=== PATIENT | female | born 1965 | race African-American/Black ===

== ENCOUNTER 2021-08-12 19:10 | Inpatient (IN) ==
[2021-08-12 19:33] LABS: Basophils # 0.1 10*3/uL (0.0-0.2); Basophils % 0.5 % (0.0-0.8); Eosinophils # 0.1 10*3/uL (0.0-0.87); Eosinophils % 1.5 % (0.00-10.9); Hematocrit 43.2 VOL% (35.7-47.0); Hemoglobin 14.8 GM/DL (12.0-16.0); Immature Granulocytes % 0.3 %; Immature Granulocytes Absolute 0.03 #; Lymphocytes # 2.1 10*3/uL (1.4-4.0); Lymphocytes % 22.7 % (21.3-54.2); Mean Corpuscular HGB Conc 34.3 GM/DL (32-36); Mean Corpuscular Volume 95.4 FL (87-102); Mean Platelet Volume 9.9 FL (9.6-12.0); Monocytes % 8.4 % (1.7-12.7); Neutrophils % 66.6 % (38.7-73.9); Platelet Count 317 T/CUMM (130-400); Red Blood Count 4.53 MC/CUMM (3.8-5.5); Red Cell Distribution Width 13.6 % (9.3-17.3); White Blood Count 9.3 T/CUMM (4-12)
[2021-08-12 19:54] LABS: Alanine Aminotransferase 60 U/L (13-56); Albumin 4.1 G/DL (3.4-5.0); Alkaline Phosphatase 71 U/L (45-117); Aspartate Amino Transferase 45 U/L (0-37); Bilirubin,Total < 0.39 MG/DL (0.20-1.00); Blood Urea Nitrogen 8 MG/DL (7-18); Carbon Dioxide 27 MMOL/L (21-32); Estimated Glom Filtration Rate 114 ML/MIN; Glucose 101 MG/DL (74-106); Osmolality,Calculated 276.4 MOS/KG (273-304); Potassium 4.9 MMOL/L (3.5-5.1); Sodium 140 MMOL/L (136-145); Total Protein 8.7 G/DL (6.4-8.2)
[2021-08-12] MEDS ORDERED: ALUM/MAG/SIMETH/LIDO VISC 1:1 30 ML BOTTLE PO STA (20:24)
[2021-08-12] MEDS ORDERED: LABETALOL 20 MG/4 ML SYRINGE IV STA (20:25)
[2021-08-12] MEDS ORDERED: NITROGLYCERIN SL 0.4 MG TABLET SL STA (21:03)
[2021-08-12] MEDS ORDERED: ASPIRIN 325 MG TABLET PO STA (21:03)
[2021-08-12] MEDS ORDERED: methylPREDNISolone SOD SUC 125 MG/2 ML VIAL IV STA (21:03)
[2021-08-12] MEDS ORDERED: ALBUTEROL/IPRATROPIUM 3 ML NEB RESP TX STA (21:03)
[2021-08-12] MEDS ORDERED: ONDANSETRON 4 MG/2 ML VIAL IV ONE ×2 (21:04→21:51)
[2021-08-12] MEDS ORDERED: MORPHINE 2 MG/1 ML SYRINGE IV STA (21:04)
[2021-08-12] MEDS ORDERED: hydrALAZINE 20 MG/1 ML VIAL IV PRN (23:11)
[2021-08-12] MEDS ORDERED: NICOTINE 21 MG/24 HR PATCH TRANSDERM PRN (23:11)
[2021-08-12] MEDS ORDERED: KETOROLAC 30 MG/1 ML VIAL IV STA (23:11)
[2021-08-12] MEDS ORDERED: ONDANSETRON 4 MG/2 ML VIAL IV PRN (23:11)
[2021-08-13 00:20] LABS: INR 0.9; PT Patient Result 9.8 SECS (10.5-12.0); Partial Thromboplastin Time 24.2 SECS (23.9-33.8)
[2021-08-13] MEDS: ENOXAPARIN 40 MG/0.4 ML SYRINGE SUBCUT SCH ×2 (01:30→20:25)
[2021-08-13] MEDS: ACETAMINOPHEN 325 MG TABLET PO PRN ×3 (01:30→17:10)
[2021-08-13 02:11] LABS: Basophils % 0.2 % (0.0-0.8); Hematocrit 39.8 VOL% (35.7-47.0); Hemoglobin 13.5 GM/DL (12.0-16.0); Immature Granulocytes % 0.4 %; Immature Granulocytes Absolute 0.04 #; Lymphocytes # 0.8 10*3/uL (1.4-4.0); Lymphocytes % 6.7 % (21.3-54.2); Mean Corpuscular HGB Conc 33.9 GM/DL (32-36); Mean Corpuscular Volume 96.8 FL (87-102); Mean Platelet Volume 10.4 FL (9.6-12.0); Neutrophils % 91.7 % (38.7-73.9); Platelet Count 289 T/CUMM (130-400); Red Blood Count 4.11 MC/CUMM (3.8-5.5); Red Cell Distribution Width 13.7 % (9.3-17.3); White Blood Count 11.3 T/CUMM (4-12)
[2021-08-13 02:36] LABS: Alanine Aminotransferase 49 U/L (13-56); Albumin 3.9 G/DL (3.4-5.0); Alkaline Phosphatase 70 U/L (45-117); Aspartate Amino Transferase 34 U/L (0-37); Bilirubin,Total < 0.39 MG/DL (0.20-1.00); Blood Urea Nitrogen 11 MG/DL (7-18); Carbon Dioxide 24 MMOL/L (21-32); Estimated Glom Filtration Rate 92 ML/MIN; Glucose 194 MG/DL (74-106); Osmolality,Calculated 273.1 MOS/KG (273-304); Potassium 3.7 MMOL/L (3.5-5.1); Sodium 135 MMOL/L (136-145)
[2021-08-13 02:38] LABS: Lymphocytes 4 % (20-55); Segmented Neutrophils 95 % (50-85); Total Cells Counted 100
[2021-08-13 02:39] LABS: Platelet Estimate Normal
[2021-08-13 02:41] LABS: Polychromasia Slight
[2021-08-13] MEDS ORDERED: MORPHINE 2 MG/1 ML SYRINGE IV ONE (05:51)
[2021-08-13] MEDS: ALBUTEROL/IPRATROPIUM 3 ML NEB RESP TX SCH ×4 (07:26→19:55)
[2021-08-13] MEDS: PANTOPRAZOLE 40 MG TABLET PO SCH (08:50)
[2021-08-13] MEDS: hydroCHLOROthiazide 25 MG TABLET PO SCH (10:47)
[2021-08-13] MEDS ORDERED: LORazepam 2 MG/1 ML VIAL IV PRN (13:33)
[2021-08-13] MEDS: THIAMINE 200 MG/2 ML VIAL IV SCH (17:02)
[2021-08-13] MEDS: FOLIC ACID INJ 1 MG in SYRINGE 1 EACH IV SCH (17:03)
[2021-08-13] MEDS: MULTIVITAMIN INJ 10 ML in SODIUM CHLORIDE 0.9% 1,000 ML IV SCH (17:06)
[2021-08-13] MEDS: SIMVASTATIN 20 MG TABLET PO SCH (18:26)
[2021-08-13] MEDS ORDERED: ASPIRIN CHEW 81 MG TABLET PO ONE (21:13)
[2021-08-14] MEDS: ALBUTEROL/IPRATROPIUM 3 ML NEB RESP TX SCH ×4 (01:01→19:28)
[2021-08-14] MEDS: ACETAMINOPHEN 325 MG TABLET PO PRN ×3 (02:00→22:36)
[2021-08-14] MEDS: SODIUM CHLORIDE 0.9% 1,000 ML IV SCH ×2 (03:10→04:33)
[2021-08-14 05:21] LABS: Basophils % 0.2 % (0.0-0.8); Eosinophils % 0.1 % (0.00-10.9); Hematocrit 37.3 VOL% (35.7-47.0); Hemoglobin 12.6 GM/DL (12.0-16.0); Immature Granulocytes % 0.4 %; Immature Granulocytes Absolute 0.05 #; Lymphocytes # 2.7 10*3/uL (1.4-4.0); Lymphocytes % 22.2 % (21.3-54.2); Mean Corpuscular HGB Conc 33.8 GM/DL (32-36); Mean Corpuscular Volume 97.6 FL (87-102); Mean Platelet Volume 10.7 FL (9.6-12.0); Monocytes % 8.2 % (1.7-12.7); Neutrophils % 68.9 % (38.7-73.9); Platelet Count 250 T/CUMM (130-400); Red Blood Count 3.82 MC/CUMM (3.8-5.5); Red Cell Distribution Width 13.7 % (9.3-17.3); White Blood Count 12.1 T/CUMM (4-12)
[2021-08-14 05:39] LABS: Alanine Aminotransferase 36 U/L (13-56); Albumin 3.3 G/DL (3.4-5.0); Alkaline Phosphatase 56 U/L (45-117); Aspartate Amino Transferase 19 U/L (0-37); Bilirubin,Total < 0.39 MG/DL (0.20-1.00); Blood Urea Nitrogen 12 MG/DL (7-18); Calcium 8.4 MG/DL (8.5-10.1); Carbon Dioxide 27 MMOL/L (21-32); Estimated Glom Filtration Rate 113 ML/MIN; Glucose 108 MG/DL (74-106); Osmolality,Calculated 281.3 MOS/KG (273-304); Potassium 3.6 MMOL/L (3.5-5.1); Sodium 141 MMOL/L (136-145)
[2021-08-14 05:41] LABS: Risk Ratio 1.96; VLDL Cholesterol 13.6 MG/DL
[2021-08-14] MEDS ORDERED: MAGNESIUM SULF RIDER 4 GM/100 ML PREMIX IV PRN (07:29)
[2021-08-14] MEDS ORDERED: MAGNESIUM SULF RIDER 2 GM/50 ML PREMIX IV PRN (07:29)
[2021-08-14] MEDS: hydroCHLOROthiazide 25 MG TABLET PO SCH (09:39)
[2021-08-14] MEDS: ASPIRIN CHEW 81 MG TABLET PO SCH (09:39)
[2021-08-14] MEDS: PANTOPRAZOLE 40 MG TABLET PO SCH (09:39)
[2021-08-14] MEDS: FOLIC ACID INJ 1 MG in SYRINGE 1 EACH IV SCH (11:35)
[2021-08-14] MEDS: THIAMINE 200 MG/2 ML VIAL IV SCH (11:36)
[2021-08-14] MEDS: GABAPENTIN 100 MG CAPSULE PO SCH ×2 (15:03→20:19)
[2021-08-14] MEDS: MULTIVITAMIN INJ 10 ML in SODIUM CHLORIDE 0.9% 1,000 ML IV SCH (15:03)
[2021-08-14] MEDS: SIMVASTATIN 20 MG TABLET PO SCH (20:19)
[2021-08-14] MEDS: ENOXAPARIN 40 MG/0.4 ML SYRINGE SUBCUT SCH (20:19)
[2021-08-15] MEDS: ALBUTEROL/IPRATROPIUM 3 ML NEB RESP TX SCH ×4 (01:27→18:57)
[2021-08-15] MEDS: ACETAMINOPHEN 325 MG TABLET PO PRN ×2 (02:05→18:17)
[2021-08-15] MEDS: SODIUM CHLORIDE 0.9% 1,000 ML IV SCH ×3 (02:06→21:55)
[2021-08-15 05:17] LABS: Basophils % 0.5 % (0.0-0.8); Eosinophils # 0.1 10*3/uL (0.0-0.87); Eosinophils % 1.6 % (0.00-10.9); Hematocrit 37.2 VOL% (35.7-47.0); Hemoglobin 12.5 GM/DL (12.0-16.0); Immature Granulocytes % 0.5 %; Immature Granulocytes Absolute 0.04 #; Lymphocytes # 2.9 10*3/uL (1.4-4.0); Lymphocytes % 33.1 % (21.3-54.2); Mean Corpuscular HGB Conc 33.6 GM/DL (32-36); Mean Corpuscular Volume 98.4 FL (87-102); Mean Platelet Volume 10.7 FL (9.6-12.0); Monocytes % 10.5 % (1.7-12.7); Neutrophils % 53.8 % (38.7-73.9); Platelet Count 229 T/CUMM (130-400); Red Blood Count 3.78 MC/CUMM (3.8-5.5); Red Cell Distribution Width 13.5 % (9.3-17.3); White Blood Count 8.6 T/CUMM (4-12)
[2021-08-15 05:45] LABS: Bilirubin,Total 0.6 MG/DL (0.20-1.00); Calcium 8.3 MG/DL (8.5-10.1); Osmolality,Calculated 278.3 MOS/KG (273-304); Potassium 3.4 MMOL/L (3.5-5.1); Total Protein 6.9 G/DL (6.4-8.2)
[2021-08-15] MEDS: FOLIC ACID INJ 1 MG in SYRINGE 1 EACH IV SCH (09:09)
[2021-08-15] MEDS: ASPIRIN CHEW 81 MG TABLET PO SCH (09:09)
[2021-08-15] MEDS: hydroCHLOROthiazide 25 MG TABLET PO SCH (09:09)
[2021-08-15] MEDS: PANTOPRAZOLE 40 MG TABLET PO SCH (09:09)
[2021-08-15] MEDS: GABAPENTIN 100 MG CAPSULE PO SCH ×3 (09:09→21:54)
[2021-08-15] MEDS: THIAMINE 200 MG/2 ML VIAL IV SCH (09:10)
[2021-08-15] MEDS ORDERED: POTASSIUM CHLORIDE 20 MEQ TABLET PO ONE (14:44)
[2021-08-15] MEDS: MULTIVITAMIN INJ 10 ML in SODIUM CHLORIDE 0.9% 1,000 ML IV SCH (15:31)
[2021-08-15] MEDS: SIMVASTATIN 20 MG TABLET PO SCH (21:54)
[2021-08-15] MEDS: ENOXAPARIN 40 MG/0.4 ML SYRINGE SUBCUT SCH (21:54)
[2021-08-16] MEDS: ALBUTEROL/IPRATROPIUM 3 ML NEB RESP TX SCH ×4 (00:45→19:09)
[2021-08-16] MEDS: ACETAMINOPHEN 325 MG TABLET PO PRN ×2 (01:09→23:06)
[2021-08-16 05:00] LABS: Basophils % 0.4 % (0.0-0.8); Eosinophils # 0.3 10*3/uL (0.0-0.87); Hematocrit 32.6 VOL% (35.7-47.0); Hemoglobin 10.9 GM/DL (12.0-16.0); Immature Granulocytes % 0.2 %; Immature Granulocytes Absolute 0.02 #; Lymphocytes # 2.9 10*3/uL (1.4-4.0); Lymphocytes % 35.4 % (21.3-54.2); Mean Corpuscular HGB Conc 33.4 GM/DL (32-36); Mean Corpuscular Volume 98.5 FL (87-102); Mean Platelet Volume 10.9 FL (9.6-12.0); Monocytes % 8.9 % (1.7-12.7); Neutrophils % 51.1 % (38.7-73.9); Platelet Count 201 T/CUMM (130-400); Red Blood Count 3.31 MC/CUMM (3.8-5.5); Red Cell Distribution Width 13.2 % (9.3-17.3); White Blood Count 8.1 T/CUMM (4-12)
[2021-08-16 05:20] LABS: Calcium 7.9 MG/DL (8.5-10.1); Osmolality,Calculated 280.1 MOS/KG (273-304); Potassium 3.2 MMOL/L (3.5-5.1)
[2021-08-16 05:24] LABS: Platelet Estimate Adequate
[2021-08-16] MEDS: SODIUM CHLORIDE 0.9% 1,000 ML IV SCH (10:03)
[2021-08-16] MEDS: hydroCHLOROthiazide 25 MG TABLET PO SCH (13:15)
[2021-08-16] MEDS: ASPIRIN CHEW 81 MG TABLET PO SCH (13:15)
[2021-08-16] MEDS: PANTOPRAZOLE 40 MG TABLET PO SCH (13:16)
[2021-08-16] MEDS: THIAMINE 200 MG/2 ML VIAL IV SCH (13:16)
[2021-08-16] MEDS: GABAPENTIN 100 MG CAPSULE PO SCH ×3 (13:16→20:14)
[2021-08-16] MEDS: FOLIC ACID INJ 1 MG in SYRINGE 1 EACH IV SCH (13:22)
[2021-08-16] MEDS ORDERED: POTASSIUM CHLORIDE 20 MEQ TABLET PO ONE (13:36)
[2021-08-16] MEDS: MULTIVITAMIN INJ 10 ML in SODIUM CHLORIDE 0.9% 1,000 ML IV SCH (15:22)
[2021-08-16 16:20] LABS: Folate 18.03 NG/ML (5.38-24.0)
[2021-08-16] MEDS: ENOXAPARIN 40 MG/0.4 ML SYRINGE SUBCUT SCH (20:14)
[2021-08-16] MEDS: SIMVASTATIN 20 MG TABLET PO SCH (20:14)
[2021-08-17] MEDS: ALBUTEROL/IPRATROPIUM 3 ML NEB RESP TX SCH ×3 (00:21→13:39)
[2021-08-17 05:16] LABS: Basophils % 0.4 % (0.0-0.8); Eosinophils # 0.4 10*3/uL (0.0-0.87); Eosinophils % 5.3 % (0.00-10.9); Hematocrit 32.2 VOL% (35.7-47.0); Hemoglobin 10.8 GM/DL (12.0-16.0); Immature Granulocytes % 0.3 %; Immature Granulocytes Absolute 0.02 #; Lymphocytes # 2.5 10*3/uL (1.4-4.0); Lymphocytes % 33.2 % (21.3-54.2); Mean Corpuscular HGB Conc 33.5 GM/DL (32-36); Mean Corpuscular Volume 97.9 FL (87-102); Mean Platelet Volume 10.9 FL (9.6-12.0); Monocytes % 8.1 % (1.7-12.7); Neutrophils % 52.7 % (38.7-73.9); Platelet Count 211 T/CUMM (130-400); Red Blood Count 3.29 MC/CUMM (3.8-5.5); Red Cell Distribution Width 13.2 % (9.3-17.3); White Blood Count 7.4 T/CUMM (4-12)
[2021-08-17 05:37] LABS: Hypochromasia Slight; Microcytosis Slight; Platelet Estimate Adequate
[2021-08-17 05:41] LABS: Calcium 8.7 MG/DL (8.5-10.1); Osmolality,Calculated 277.3 MOS/KG (273-304); Potassium 3.1 MMOL/L (3.5-5.1)
[2021-08-17] MEDS: THIAMINE 200 MG/2 ML VIAL IV SCH (08:47)
[2021-08-17] MEDS: ASPIRIN CHEW 81 MG TABLET PO SCH (08:49)
[2021-08-17] MEDS: GABAPENTIN 100 MG CAPSULE PO SCH (08:49)
[2021-08-17] MEDS: hydroCHLOROthiazide 25 MG TABLET PO SCH (08:49)
[2021-08-17] MEDS: PANTOPRAZOLE 40 MG TABLET PO SCH (08:49)
[2021-08-17] MEDS: ACETAMINOPHEN 325 MG TABLET PO PRN (08:52)
[2021-08-17] MEDS: FOLIC ACID INJ 1 MG in SYRINGE 1 EACH IV SCH (08:53)
[2021-08-17 12:51] VITALS: BP 134/77
[2021-08-17] MEDS ORDERED: POTASSIUM CHLORIDE 20 MEQ TABLET PO ONE (13:22)
== END 2021-08-17 16:25 | disposition home or self-care (01) | DRG 440 ==
LOC: N.ED 19:10 → N.EDINP 19:10 → N.4E 08-13 00:53
PROVIDERS: ADMIT Internal Medicine; ATTEND Internal Medicine